=== PATIENT | female | born 1945 | race Caucasian/White ===

== ENCOUNTER 2021-06-13 01:54 | Emergency (ER) | payer MEDICARE ==
[~2021-06-13] VITALS: Ht 167.6 cm; Wt 90.0 kg
--- NOTE | 2021-06-13 02:10 | NUR ---
PATIENT RESTING IN BED, NO NOTED NEEDS AT THIS TIME. WILL CONTINUE TO MONITOR. VSS. CALL LIGHT WITHIN REACH, BED IN LOWEST LOCKED POSITION, SIDE RAILS X 2 UP.
--- NOTE | 2021-06-13 02:19 | NUR ---
REPORT GIVEN TO ONCOMING RN.
--- NOTE | 2021-06-13 02:25 | NUR ---
Report received from MARISELA Monroy. This RN to assume care. Medicated patient per mar. Patient to xr
[2021-06-13] MEDS ORDERED: MORPHINE SULFATE 4 MG/ML, 1ML IVPush ONE (02:30)
[2021-06-13] MEDS ORDERED: ONDANSETRON 2MG/ML, 2ML IVPush ONE (02:30)
[2021-06-13] MEDS ORDERED: ONDANSETRON 2MG/ML, 2ML ONE (02:33)
[2021-06-13] MEDS ORDERED: MORPHINE SULFATE 4 MG/ML, 1ML ONE (02:33)
[2021-06-13] MEDS ORDERED: PLEASE ENTER ALLERGIES MC SCH (03:00)
[2021-06-13 05:27] VITALS: BP 99/43
--- NOTE | 2021-06-13 06:06 | NUR ---
Discharge instructions given. All questions and concerns addressed. Patient wheeled out to car in wheelchair and assisted into vehicle. Belongings with patient.
== END 2021-06-13 06:07 | disposition home or self-care (01) ==
LOC: ED 05:45
DX: S06.0X0A Concussion without loss of consciousness, initial encounter (principal); S39.012A Strain of muscle, fascia and tendon of lower back, initial encounter; M54.2 Cervicalgia; J44.9 Chronic obstructive pulmonary disease, unspecified; I50.9 Heart failure, unspecified; Z87.891 Personal history of nicotine dependence; W07.XXXA Fall from chair, initial encounter; Y93.89 Activity, other specified; Y92.89 Other specified places as the place of occurrence of the external cause; Y99.8 Other external cause status
CPT/HCPCS: 70450; 72125; 72128; 72131; 99285